=== PATIENT | female | born 1970 | race Caucasian/White ===

== ENCOUNTER 2018-04-21 23:02 | Inpatient (IN) ==
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
[2018-04-21 23:52] LABS: Amphetamine Screen,Urine Negative ng/mL (Cutoff=1000); Barbiturate Screen,Urine Negative ng/mL (Cutoff=200); Benzodiazepines Screen,Urine Positive ng/mL (Cutoff=200); Cannabinoid Screen,Urine Negative ng/mL (Cutoff = 50); Cocaine Screen,Urine Negative ng/mL (Cutoff= 300); Opiate Screen,Urine Negative ng/mL (Cutoff=300); Phencyclidine Screen,Urine Negative ng/mL (Cutoff=25)
[2018-04-22] MEDS ORDERED: *HR* LORazepam 1 MG TABLET PO ONE (00:22)
[2018-04-22 00:35] LABS: Basophils % 0.5 %; Eosinophils # 0.6 K/mcL (0.0-0.6); Eosinophils % 7.3 %; Hematocrit 41.6 % (35.3-44.9); Hemoglobin 13.9 g/dL (11.5-15.4); Immature Granulocytes % 0.3 % (0-4); Lymphocytes # 2.7 K/mcL (0.6-4.6); Lymphocytes % 36.2 %; Mean Corpuscular HGB Conc 33.4 g/dL (31.6-35.5); Mean Corpuscular Hemoglobin 30.5 pg (28.0-33.3); Mean Corpuscular Volume 91.2 fL (83.0-100.0); Mean Platelet Volume 9.2 fL (9.4-12.4); Monocytes # 0.6 K/mcL (0.0-1.3); Monocytes % 8.4 %; Neutrophils # 3.6 K/mcL (1.6-8.9); Platelet Count 291 K/mcL (140-400); Red Blood Count 4.56 M/mcL (3.82-4.97); Red Cell Distribution Width 13.5 % (11.5-14.5); Segmented Neutrophils % 47.3 %
[2018-04-22 01:03] LABS: Acetaminophen < 10 mcg/mL (10-20); BUN/Creatinine Ratio 16 (6-26); Blood Urea Nitrogen 15 mg/dL (6-20); Carbon Dioxide 28 mEq/L (23-29); Chloride 101 mEq/L (98-107); Ethanol < 10 mg/dL (Less than 10); Glucose 109 mg/dL (70-105); Osmolality,Calculated 283 (280-300); Potassium 3.8 mEq/L (3.5-5.1); Salicylate < 2.5 mg/dL (15.0-30.0); Sodium 136 mEq/L (136-145); eGFR For Non-African Americans > 60 (> 60)
[2018-04-22] MEDS ORDERED: Mag Hydrox/Al Hydrox/Simeth 30 ML UDC PO PRN (05:12)
[2018-04-22] MEDS ORDERED: Haloperidol Lactate 5 MG/ML VIAL IM PRN (05:12)
[2018-04-22] MEDS ORDERED: MOM Conc 10 ML UD.LIQ PO PRN (05:12)
[2018-04-22] MEDS ORDERED: Ziprasidone 20 MG CAPSULE PO PRN (05:20)
[2018-04-22] MEDS ORDERED: Ziprasidone injection 20 MG/ML VIAL IM PRN (05:20)
[2018-04-22] MEDS ORDERED: Vitamin B Complex/Vit C/Vit E 1 EACH TABLET PO SCH (09:00)
[2018-04-22] MEDS: Nicotine 21 MG PATCH.TD24 TD SCH (09:54)
[2018-04-22] MEDS: BUPRENORPHINE 8 MG SL SCH ×2 (15:21→20:42)
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
[2018-04-22] MEDS: Baclofen 10 MG TABLET PO SCH ×2 (15:43→20:41)
[2018-04-22] MEDS ORDERED: Gabapentin 400 MG CAPSULE PO ONE (16:49)
[2018-04-22] MEDS: Lisinopril-HCTZ 20-12.5mg TABLET PO SCH (20:41)
[2018-04-22] MEDS: Gabapentin 400 MG CAPSULE PO SCH (20:41)
[2018-04-22] MEDS: hydrOXYzine pamoate 25 MG CAPSULE PO PRN (20:41)
[2018-04-22] MEDS: FLUoxetine 20 MG CAPSULE PO SCH (20:42)
[2018-04-22] MEDS: lamoTRIgine 100 MG TABLET PO SCH (20:42)
[2018-04-23] MEDS: Gabapentin 400 MG CAPSULE PO SCH ×3 (08:27→21:05)
[2018-04-23] MEDS: Acetaminophen 325 MG TABLET PO PRN ×2 (08:28→21:06)
[2018-04-23] MEDS: Baclofen 10 MG TABLET PO SCH ×3 (08:29→21:06)
[2018-04-23] MEDS: Nicotine 21 MG PATCH.TD24 TD SCH (08:31)
[2018-04-23] MEDS: BUPRENORPHINE 8 MG SL SCH ×2 (08:43→21:14)
--- NOTE | 2018-04-23 15:28 | Psychiatry Progress Note ---
Date of Encounter: 04/23/18 Time of Encounter: 15:30 Subjective Interval history: ID: 48 yo white female seen on unit. CC: I thought about suicide, i shouldn't be like his. She has tried the Seroquel, it helped with sleep. She was able to go without nightmares. She has been a little less anxious. She has been able to tolerate baclofen. She had some improvement on baclofen. She plans to get a new sleep study. She reports that she gained weight. She notes that she is having 230 lbs. She is willing to go on higher dose. Review of Systems Psychiatric: Reports: depression, anxiety, abnormal sleep pattern, confusion, panic attacks Results - Vital Signs Vital Signs: Temp Pulse Resp BP Pulse Ox 98.5 F 71 18 111/70 95 04/23/18 09:00 04/23/18 09:00 04/23/18 09:00 04/23/18 09:00 04/22/18 20:29 Assessment and Plan (1) Bipolar disorder, current episode depressed, severe, without psychotic features Current visit: Yes Status: Acute Plan: Continue hospitalization, Close observation, Suicide Precautions per unit protocol, Encourage participation in unit milieu, Group Therapy, Monitor sleep, Monitor appetite, Secure weapons Risks, benefits, side effects, alternatives discussed w/pt: Yes Patient agreeable to treatment: Yes (2) Opioid dependence, in remission Current visit: Yes Status: Chronic Plan: Monitor sleep, Monitor appetite, Other Risks, benefits, side effects, alternatives discussed w/pt: Yes Patient agreeable to treatment: Yes (3) Agoraphobia with panic attacks Current visit: Yes Status: Acute Plan: Continue hospitalization, Close observation, Monitor appetite, Family/Supportive other meeting Risks, benefits, side effects, alternatives discussed w/pt: Yes Patient agreeable to treatment: Yes (4) Suicidal ideation Current visit: Yes Status: Acute Plan: Suicide Precautions per unit protocol, Secure weapons Risks, benefits, side effects, alternatives discussed w/pt: Yes Patient agreeable to treatment: Yes Consult Discharge Plan - Plan Referrals: [facility] [Outside] - 05/06/18 10:00 am (The above appointment is with Izabella Foster, counselor at [facility]. Your first appointment will be very thorough. You will be completing paperwork, meeting with a counselor, developing a treatment plan. You will receive follow- up appointments for on-going counseling and psychiatric medication management. Please bring the following with you to your first visit to the clinic: 1) proof of household income (two consecutive pay stubs, social security award letter, bank statement, statement letter from [facility], child support statement, IRS 1040 or W2 form, or a statement from the person who financially supports you stating they help provide for your basic needs), 2) proof of residency (drivers license, a piece of mail showing your address, a statement from person you live with verifying you live at their address), 3) your social security number, 4) photo ID, and 5) your insurance card (if you have commercial insurance you must call to obtain a prior authorization number before you arrive to your first appointment). If you do not bring these items, it is possible that you may not be seen. ) Psychiatry Exam - Constitutional Vitals: Temp Pulse Resp BP Pulse Ox 98.5 F 71 18 111/70 95 04/23/18 09:00 04/23/18 09:00 04/23/18 09:00 04/23/18 09:00 04/22/18 20:29 General appearance: age & developmentally appropriate, well-groomed, well- nourished - Musculoskeletal Gait: normal Station: relaxed Strength & Tone: normal for patient - Psychiatric Patient Orientation: Yes Person, Yes Time, Yes Place Level of alertness: Alert Behavior: calm, cooperative Psychomotor activity: Normal Eye Contact: Maintains Eye Contact Mood Description: Depressed, Anxious Affect description: congruent with mood, tearful, anxious Speech Volume: Normal Speech pattern: normal rate, normal rhythm, normal tone, fluent, spontaneous, excessive Language & Vocabulary: consistent with education Thought Process: Linear, Goal Oriented Thought Content: Yes Suicidal ideation, No Homicidal ideation, No Overt delusions Perceptual Disturbances: No Auditory hallucinations, No Visual hallucinations Attention Span Ability: Capable of Focused Attention Memory Description: Grossly Intact Patient Reliability: Questionable Historian Fund of knowledge: Yes abstraction ability Intelligence Estimate: Average Judgment: Limited Insight: Minimal
[2018-04-23] MEDS: FLUoxetine 20 MG CAPSULE PO SCH (21:05)
[2018-04-23] MEDS: hydrOXYzine pamoate 25 MG CAPSULE PO PRN (21:06)
[2018-04-23] MEDS: lamoTRIgine 100 MG TABLET PO SCH (21:06)
[2018-04-23] MEDS: Lisinopril-HCTZ 20-12.5mg TABLET PO SCH (21:06)
[2018-04-24] MEDS: Baclofen 10 MG TABLET PO SCH (09:59)
[2018-04-24] MEDS: Gabapentin 400 MG CAPSULE PO SCH (09:59)
[2018-04-24] MEDS: Nicotine 21 MG PATCH.TD24 TD SCH (12:13)
[2018-04-24] MEDS: BUPRENORPHINE 8 MG SL SCH (12:21)
[2018-04-24 12:52] VITALS: BP 106/71
[2018-04-24] MEDS ORDERED: Baclofen 10 MG TABLET PO PRN (13:44)
--- NOTE | 2018-04-24 13:56 | Psychiatry Progress Note ---
Date of Encounter: 04/24/18 Time of Encounter: 13:45 Subjective Interval history: D: The patient is a 48-year-old white female. Chief complaint that Seroquel really made me tired. History of present illness. The patient's hospitalization was precipitated by 4 days of not sleeping. She had visual hallucinations and read about nightmares that focused on the themes of loss and abuse rate The patient was given Seroquel and his trazodone was felt not to be as helpful as important to note that the patient did not take the trazodone in the days prior to hospitalization this may have precipitated the insomnia that led to mood changes suicidal ideation and hospitalization. Over the past 24 hours patient has had increasing sedation and confusion memory problems excessive tiredness and last night had an incident where she was unsteady and walked into a cabinet. There is no significant injury. The patient also reports an episode of enuresis and constipation. The patient reports that her fiance has awoken her when she has not been breathing. The patient completed up with sleep scale and did not endorse all items but still scored 11. The patient is willing to have a sleep apnea study at the [place] lab [phone]. She is planning to talk to her primary care physician about this Nonetheless as a precaution the patient's baclofen was discontinued gabapentin was held and more recently Seroquel she is willing to go back to the trazodone that she was on she felt that the baclofen was helpful but 10 mg 3 times a day should be used. This helps with pain the patient does have an antalgic gait. On examination the patient had some nystagmus seen in some of the visual testing. She had some dysmetria and no dysdiadochokinesis. The patient had mild sway the Romberg. She had episodes of microsleep she had intact short-term and immediate memory. She is requesting discharge with scheduled follow-up and agrees to a sleep study to rule out sleep apnea. She has no visual hallucinations auditory hallucinations and had no recent nightmares or suicidal ideation Review of Systems Psychiatric: Reports: depression, anxiety, abnormal sleep pattern, confusion Results - Vital Signs Vital Signs: Temp Pulse Resp BP Pulse Ox 99 F 68 18 106/71 98 04/24/18 09:00 04/24/18 12:52 04/24/18 12:52 04/24/18 12:52 04/24/18 12:52 Assessment and Plan (1) Bipolar disorder, current episode depressed, severe, without psychotic features Current visit: Yes Status: Acute Plan: Continue hospitalization, Close observation, Suicide Precautions per unit protocol, Encourage participation in unit milieu, Monitor sleep Risks, benefi ts, side effects, alternatives discussed w/pt: Yes Patient agreeable to treatment: Yes (2) Opioid dependence, in remission Current visit: Yes Status: Chronic Plan: Continue hospitalization, Close observation, Suicide Precautions per unit protocol Risks, benefits, side effects, alternatives discussed w/pt: Yes Patient agreeable to treatment: Yes (3) Agoraphobia with panic attacks Current visit: Yes Status: Acute Plan: Continue hospitalization, Monitor appetite Risks, benefits, side effects, alternatives discussed w/pt: Yes Patient agreeable to treatment: Yes (4) Suicidal ideation Current visit: Yes Status: Resolved Risks, benefits, side effects, alternatives discussed w/pt: Yes Patient agreeable to treatment: Yes Consult Discharge Plan - Plan Referrals: [facility] [Outside] - 05/06/18 10:00 am (The above appointment is with Izabella Foster, counselor at [facility]. Your first appointment will be very thorough. You will be completing paperwork, meeting with a counselor, developing a treatment plan. You will receive follow- up appointments for on-going counseling and psychiatric medication management. Please bring the following with you to your first visit to the clinic: 1) proof of household income (two consecutive pay stubs, social security award letter, bank statement, statement letter from [facility], child support statement, IRS 1040 or W2 form, or a statement from the person who financially supports you stating they help provide for your basic needs), 2) proof of residency (drivers license, a piece of mail showing your address, a statement from person you live with verifying you live at their address), 3) your social security number, 4) photo ID, and 5) your insurance card (if you have commercial insurance you must call to obtain a prior authorization number before you arrive to your first appointment). If you do not bring these items, it is possible that you may not be seen. ) Psychiatry Exam - Constitutional Vitals: Temp Pulse Resp BP Pulse Ox 99 F 68 18 106/71 98 04/24/18 09:00 04/24/18 12:52 04/24/18 12:52 04/24/18 12:52 04/24/18 12:52 General appearance: age & developmentally appropriate, well-groomed, well- nourished - Musculoskeletal Gait: normal Station: relaxed Strength & Tone: normal for patient - Psychiatric Patient Orientation: Yes Person, Yes Time, Yes Place Level of alertness: Alert Behavior: calm, cooperative Psychomotor activity: Normal Eye Contact: Maintains Eye Contact Mood Description: Euthymic/stable Affect description: congruent with mood, full range Speech Volume: Normal Speech pattern: normal rate, normal rhythm, normal tone, fluent, spontaneous Language & Vocabulary: consistent with education Thought Process: Linear, Goal Oriented Thought Content: No Suicidal ideation, No Homicidal ideation, No Overt delusions Perceptual Disturbances: No Auditory hallucinations, No Visual hallucinations Attention Span Ability: Capable of Sustained Attention Memory Description: Grossly Intact Patient Reliability: Reliable Historian Fund of knowledge: Yes abstraction ability, Yes aware of current events Intelligence Estimate: Average Judgment: Good Insight: Full
[2018-04-24] MEDS ORDERED: Gabapentin 400 MG CAPSULE PO ONE (14:59)
--- NOTE | 2018-04-24 15:06 | Discharge Summary ---
Date of Encounter: 04/24/18 Time of Encounter: 15:00 Diagnosis - Discharge Diagnosis (1) Bipolar disorder, current episode depressed, severe, without psychotic features Priority: Primary Status: Acute (2) Opioid dependence, in remission Priority: Secondary Status: Chronic (3) Agoraphobia with panic attacks Priority: Secondary Status: Acute (4) Suicidal ideation Priority: Secondary Status: Resolved Medications - Discharge Medications Prescriptions: Baclofen [Lioresal] 10 mg PO TID PRN 30 Days #90 tablet PRN Reason: Spasms Lamotrigine [Lamictal] 100 mg PO DAILY 03/30/15 [History] Ranitidine HCl [Zantac] 150 mg PO BID 05/14/15 [History] FLUoxetine HCl [Prozac] 60 mg PO DAILY 04/15/16 [History] Albuterol Sulfate [Ventolin Hfa] 2 puff IH Q4H PRN 04/23/18 [History] Buprenorphine HCl [Subutex] 16 mg SL DAILY 04/23/18 [History] Cholecalciferol (D-3) [Vitamin D] 1,000 unit PO DAILY 04/23/18 [History] Gabapentin [Neurontin] 800 mg PO TID 04/23/18 [History] Lisinopril/Hydrochlorothiazide [Zestoretic 20-25 mg Tablet] 1 tab PO DAILY 04/23/18 [History] Propranolol HCl 40 mg PO BID 04/23/18 [History] Baclofen [Lioresal] 10 mg PO TID PRN 30 Days #90 tablet 04/24/18 [Rx] Buprenorphine 8 mg SL BID 04/24/18 [Rx] FLUoxetine HCl [Prozac] 40 mg PO HS capsule 04/24/18 [Rx] Loperamide [Imodium] 2 mg PO Q2HR PRN capsule 04/24/18 [Rx] Loperamide [Imodium] 4 mg PO ONCE PRN capsule 04/24/18 [Rx] MOM Conc [MILK OF MAGNESIA conc] 10 ml PO HS PRN ud.[id number] 04/24/18 [Rx] Mag Hydrox/Al Hydrox/Simeth [Maalox] 30 ml PO Q4H PRN udc 04/24/18 [Rx] lamoTRIgine [Lamictal] 100 mg PO HS tablet 04/24/18 [Rx] traZODone [TraZODone] 200 mg PO HS tablet 04/24/18 [Rx] Allergy/AdvReac Type Severity Reaction Status Date / Time Sulfa (Sulfonamide Allergy Intermediate Anaphylaxis Verified 06/25/16 12:23 Antibiotics) prednisone Allergy Anaphylaxis Verified 06/25/16 12:23 gabapentin AdvReac See Verified 06/25/16 12:23 Comments Naloxone AdvReac Migraine Verified 04/21/18 23:09 Results Procedures and tests throughout hospitalization: Completed Lab Orders Category Date Time Status Acetaminophen Stat Lab 04/22/18 00:19 Completed Basic Metabolic Panel Stat Lab 04/22/18 00:19 Completed Complete Blood Count [HEME] Stat Lab 04/22/18 00:19 Completed Drug Screen, Urine [UCHEM] Stat Lab 04/21/18 23:08 Completed Ethanol Stat Lab 04/22/18 00:19 Completed Salicylate Stat Lab 04/22/18 00:19 Completed Provider Date of admission: 04/22/18 04:55 Primary care physician: PCP NONE Discharging clinician: John Liang Psychiatry Exam - Constitutional Vitals: Temp Pulse Resp BP Pulse Ox 99 F 68 18 106/71 98 04/24/18 09:00 04/24/18 12:52 04/24/18 12:52 04/24/18 12:52 04/24/18 12:52 General appearance: age & developmentally appropriate, well-groomed, well- nourished - Musculoskeletal Gait: normal Station: relaxed Strength & Tone: normal for patient - Psychiatric Patient Orientation: Yes Person, Yes Time, Yes Place Level of alertness: Alert Behavior: calm, cooperative Psychomotor activity: Normal Eye Contact: Maintains Eye Contact Mood Description: Euthymic/stable, Expansive Affect description: congruent with mood, full range, inappropriate to situation Speech Volume: Normal Speech pattern: normal rate, normal rhythm, normal tone, fluent, spontaneous Language & Vocabulary: consistent with education Thought Process: Linear, Goal Oriented Thought Content: No Suicidal ideation, No Homicidal ideation, No Overt delusions Perceptual Disturbances: No Auditory hallucinations, No Visual hallucinations Attention Span Ability: Capable of Focused Attention Memory Description: Grossly Intact Patient Reliability: Reliable Historian Fund of knowledge: Yes abstraction ability, Yes below average Intelligence Estimate: Average Judgment: Fair Insight: Partial Hospital Course Hospital course: Ms. Strickland is a 48 year old female ID: I slept after I got here. History of present illness the patient met at the time of discharge she had f ollow-up appointments. In spite of the difficulties that she had with medicines she wanted to return to her previous regimen of medicines with the addition of baclofen 10 mg 3 times a day as needed for muscle pain area patient was cautioned against the use of benzodiazepines while taking Subutex. The patient was told that she could make other arrangements for Subutex and should inform her prescribing Subutex provider that she was in the emergency room and may have been exposed benzodiazepine such as lorazepam. The patient verbalized understanding. The patient had significant sedation enuresis unsteadiness after taking 2 doses of Seroquel most recent being 100 mg. The patient had excessive side effects to that. The patient had essentially normal cerebellar function with the exception of some nystagmus and slight sway nonetheless the patient's fiance came and talked about her condition. He also reported witnessed sleep apnea agreed that she will should get a sleep apnea test. The patient reported improvement overall in terms of nightmares mood suicidal ideation felt that she is ready to go home for follow-up. I gave her information about the [place] [facility] so that a sleep study could be performed. - Time Spent with Patient Total time spent providing and/or coordinating discharge services: Assessment and Plan - Patient/Caregiver Discharge Instructions Activity: resume usual activities as tolerated Diet: regular diet - Follow up Plan Follow up with: [facility] [Outside] - 05/06/18 10:00 am (The above appointment is with Izabella Foster, counselor at [facility]. Your first appointment will be very thorough. You will be completing paperwork, meeting with a counselor, developing a treatment plan. You will receive follow- up appointments for on-going counseling and psychiatric medication management. Please bring the following with you to your first visit to the clinic: 1) proof of household income (two consecutive pay stubs, social security award letter, bank statement, statement letter from [facility], child support statement, IRS 1040 or W2 form, or a statement from the person who financially supports you stating they help provide for your basic needs), 2) proof of residency (drivers license, a piece of mail showing your address, a statement from person you live with verifying you live at their address), 3) your social security number, 4) photo ID, and 5) your insurance card (if you have commercial insurance you must call to obtain a prior authorization number before you arrive to your first appointment). If you do not bring these items, it is possible that you may not be seen. ) Functional capacity at discharge: independent ambulation Overall status at discharge: Stable Disposition: Home, Self-Care Quality - Multiple Antipsychotics Patient discharged on 2 or more antipsychotic medications: No Procedures - Procedures Procedures: Medication Management, Crisis Stabilization, Supportive Therapy, Group Therapy, Psychoeducational Therapy
[2018-04-24] MEDS ORDERED: traZODone 50 MG TABLET PO SCH (21:00)
== END 2018-04-24 15:20 | disposition home or self-care (01) | DRG 753 ==
LOC: EMEROOARM 23:02 → 1ANU 04-22 04:55
PROVIDERS: ADMIT Psychiatry & Neurology Forensic Psychiatry; ATTEND Psychiatry & Neurology Forensic Psychiatry

== ENCOUNTER 2019-03-17 19:24 | Observation (INO) ==
[2019-03-17 20:26] LABS: Bilirubin,Urine Negative (Negative); Blood,Urine Negative (Negative); Clarity,Urine Clear (Clear); Color,Urine Yellow (Yellow); Glucose,Urine (UA) Normal (Normal); Ketones,Urine Negative (Negative); Leukocyte Esterase,Urine Negative (Negative); Nitrite,Urine Negative (Negative); Protein,Urine Negative (Neg-Trace); Specific Gravity,Urine 1.019 (1.010-1.025); Urobilinogen,Urine Normal (Normal)
[2019-03-17 20:37] LABS: Amphetamine Screen,Urine Negative ng/mL (Cutoff=1000); Barbiturate Screen,Urine Negative ng/mL (Cutoff=200); Benzodiazepines Screen,Urine Negative ng/mL (Cutoff=200); Cannabinoid Screen,Urine Negative ng/mL (Cutoff = 50); Cocaine Screen,Urine Negative ng/mL (Cutoff= 300); Opiate Screen,Urine Negative ng/mL (Cutoff=300); Phencyclidine Screen,Urine Negative ng/mL (Cutoff=25)
[2019-03-17 20:50] LABS: Basophils # 0.1 K/mcL (0.0-0.2); Basophils % 0.7 %; Eosinophils # 0.4 K/mcL (0.0-0.6); Eosinophils % 4.3 %; Hemoglobin 12.4 g/dL (11.5-15.4); Immature Granulocytes % 0.4 % (0-4); Lymphocytes # 2.6 K/mcL (0.6-4.6); Lymphocytes % 31.7 %; Mean Corpuscular HGB Conc 32.6 g/dL (31.6-35.5); Mean Corpuscular Hemoglobin 30.4 pg (28.0-33.3); Mean Corpuscular Volume 93.1 fL (83.0-100.0); Mean Platelet Volume 9.4 fL (9.4-12.4); Monocytes # 0.7 K/mcL (0.0-1.3); Neutrophils # 4.5 K/mcL (1.6-8.9); Platelet Count 308 K/mcL (140-400); Red Blood Count 4.08 M/mcL (3.82-4.97); Red Cell Distribution Width 13.2 % (11.5-14.5); Segmented Neutrophils % 54.9 %; White Blood Count 8.2 K/mcL (4.3-11.1)
[2019-03-17 21:08] LABS: Acetaminophen < 10 mcg/mL (10-20); BUN/Creatinine Ratio 18 (6-26); Blood Urea Nitrogen 19 mg/dL (6-20); Calcium 9.1 mg/dL (8.6-10.3); Carbon Dioxide 28 mEq/L (23-29); Chloride 104 mEq/L (98-107); Ethanol < 10 mg/dL (Less than 10); Glucose 97 mg/dL (70-105); Osmolality,Calculated 292 (280-300); Potassium 3.6 mEq/L (3.5-5.1); Salicylate < 2.5 mg/dL (15.0-30.0); Sodium 140 mEq/L (136-145); eGFR For African Americans > 60 (> 60); eGFR For Non-African Americans 56 (> 60)
[2019-03-17] MEDS ORDERED: MOM Conc 10 ML UD.LIQ PO PRN (23:28)
[2019-03-17] MEDS ORDERED: *HR* LORazepam 2 MG/ML VIAL IM PRN (23:28)
[2019-03-17] MEDS ORDERED: traZODone 50 MG TABLET PO PRN (23:28)
[2019-03-17] MEDS ORDERED: Acetaminophen 325 MG TABLET PO PRN (23:28)
[2019-03-17] MEDS ORDERED: *HR* LORazepam 1 MG TABLET PO PRN (23:28)
[2019-03-17] MEDS ORDERED: Haloperidol Lactate 5 MG/ML VIAL IM PRN (23:28)
[2019-03-17] MEDS ORDERED: Mag Hydrox/Al Hydrox/Simeth 30 ML UDC PO PRN (23:28)
[2019-03-17] MEDS ORDERED: hydrOXYzine pamoate 25 MG CAPSULE PO PRN (23:28)
[2019-03-18 09:08] VITALS: BP 106/58
[2019-03-18] MEDS ORDERED: FLUoxetine HCl Oral Soln 20 MG/5 ML UDC PO SCH (10:00)
[2019-03-18] MEDS ORDERED: FLUoxetine 20 MG CAPSULE PO SCH (10:51)
[2019-03-18] MEDS ORDERED: Gabapentin 400 MG CAPSULE PO SCH (15:00)
[2019-03-18] MEDS ORDERED: lamoTRIgine 25 MG TABLET PO SCH (21:00)
[2019-03-19] MEDS ORDERED: *HR* Buprenorphine HCl 8 MG TAB.SUBL SL SCH (09:00)
== END 2019-03-18 12:35 | disposition home or self-care (01) ==
LOC: EMEROOARM 19:24 → INTOOBSV 23:12 → 1ANU 23:12
PROVIDERS: ADMIT Psychiatry & Neurology Psychiatry; ATTEND Psychiatry & Neurology Psychiatry